=== PATIENT | male | born 1970 | race Caucasian/White ===

== ENCOUNTER 2018-05-24 14:03 | Inpatient (IN) | payer MEDICAID, OTHER ==
[~2018-05-24] VITALS: Ht 170.2 cm; Wt 84.8 kg
[2018-05-24] MEDS ORDERED: SODIUM CHLORIDE 0.9% 1,000 ML IV ONE ×2 (14:32→16:58)
[2018-05-24 15:01] LABS: BG BASE EXCESS 3.7 mmol/L (-2.0-2.0); BG CARBOXYHEMOGLOBIN 0.4 % (0.5-1.5); BG DEOXYHEMOGLOBIN 5.1 % (0.0-5.0); BG FRACTION INSPIRED OXYGEN 21; BG HCO3 ACT 28.2 mmol/L (22.0-26.0); BG METHEMOGLOBIN 0.3 % (0.0-1.5); BG OXYGEN SATURATION 94.9 % (92.0-98.5); BG OXYHEMOGLOBIN 94.2 % (94.0-97.0); BG PCO2 42.7 mmHg (35.0-45.0); BG PH 7.438 (7.350-7.450); BG PO2 77.4 mmHg (75.0-100.0); BG SAMPLE SITE RIGHT BRACHIAL; BG TOTAL HEMOGLOBIN 10.1 g/dL (12.0-18.0); BG VENT MODE ROOM AIR
[2018-05-24 15:30] LABS: INR 1.1; PROTHROMBIN TIME 11.1 sec (9.1-11.1)
[2018-05-24 15:31] LABS: BASOPHILS % 0.4 % (0.0-2.0); EOSINOPHILS % 0.6 % (0.0-5.0); HEMATOCRIT. 26.6 % (42.0-52.0); HEMOGLOBIN. 9.6 g/dL (14.0-18.0); LYMPHOCYTES % 10.4 % (20.0-50.0); MEAN CORPUSCULAR HEMOGLOBIN 31.8 pg (28.0-32.0); MEAN PLATELET VOLUME 9.1 fl (7.4-10.4); NEUTROPHILS % 81.6 % (40.0-76.0); PLATELET 112 x1000/uL (130-400); RED BLOOD CELL COUNT 3.02 mill/uL (4.7-6.1); RED CELL DISTRIBUTION WIDTH 15.4 % (11.6-14.6)
[2018-05-24 15:39] LABS: AMMONIA 32 uMol/L (<32)
[2018-05-24 15:40] LABS: CHLORIDE 98 mEq/L (98-107)
[2018-05-24 15:47] LABS: ETHANOL BLOOD < 10 mg/dL
[2018-05-24 15:56] LABS: BETA HYDROXYBUTYRATE 0.2 mMol/L (0.0-0.3)
[2018-05-24 15:58] LABS: CLARITY URINE CLEAR (CLEAR); COLOR URINE YELLOW (YELLOW); KETONES URINE NEGATIVE (NEGATIVE); LEUKOCYTE ESTERASE URINE NEGATIVE (NEGATIVE); NITRITE URINE NEGATIVE (NEGATIVE); OCCULT BLOOD URINE TRACE (NEGATIVE); PH URINE 6.5 (4.5-8.0); PROTEIN URINE 3+ (NEGATIVE); SPECIFIC GRAVITY URINE 1.023 (1.005-1.030); UROBILINOGEN URINE 0.2 E.U./dL (0.2-1.0)
[2018-05-24 16:17] LABS: *AMPHETAMINES SCREEN URINE NEGATIVE (NEGATIVE); *BENZODIAZEPINES SCREEN URINE NEGATIVE (NEGATIVE)
[2018-05-24 16:18] LABS: *COCAINE SCREEN URINE NEGATIVE (NEGATIVE); CANNABINOID URINE SCREEN NEGATIVE (NEGATIVE); METHADONE URINE SCREEN NEGATIVE (NEGATIVE); OPIATES URINE SCREEN NEGATIVE (NEGATIVE); PHENCYCLIDINE URINE SCREEN NEGATIVE (NEGATIVE)
[2018-05-24 16:21] LABS: *BARBITURATES SCREEN URINE NEGATIVE (NEGATIVE)
[2018-05-24] MEDS ORDERED: INSULIN REGULAR (HUMULIN R) 300UNITS/3ML SUBCUT NR (17:00)
[2018-05-24] MEDS ORDERED: CLONIDINE 0.1MG TABLET PO PRN (18:45)
[2018-05-24] MEDS ORDERED: HYDROCODONE/ACETAMINOPHEN 5/325MG TABLET PO PRN (18:45)
[2018-05-24] MEDS ORDERED: DOCUSATE SODIUM 100MG CAPSULE PO PRN (18:45)
[2018-05-24] MEDS ORDERED: ONDANSETRON HCL 4MG/2ML INJ IV PRN (18:45)
[2018-05-24] MEDS ORDERED: GUAIFENESIN 200MG/10ML SUGAR FREE UDC PO PRN (18:45)
[2018-05-24] MEDS ORDERED: ACETAMINOPHEN 325MG TABLET PO PRN (18:45)
[2018-05-24] MEDS: SODIUM CHLORIDE 0.9% 1,000 ML IV SCH (19:05)
[2018-05-24] MEDS ORDERED: DEXTROSE 50% WATER 50ML SYRINGE IV PRN (22:00)
[2018-05-25] MEDS ORDERED: INSULIN GLARGINE UD 100 UNITS/ML SYR SUBCUT SCH
[2018-05-25 00:20] VITALS: BP 116/81
[2018-05-25] MEDS: LORAZEPAM 2MG/ML CPJ IV PRN ×2 (00:34→08:38)
[2018-05-25 04:47] VITALS: BP 172/90
[2018-05-25] MEDS: SODIUM CHLORIDE 0.9% 1,000 ML IV SCH (05:31)
[2018-05-25 06:36] LABS: CHLORIDE 105 mEq/L (98-107)
[2018-05-25] MEDS: BLOOD SUGAR DIAGNOSTIC STRIP TEST SCH ×2 (06:47→12:20)
[2018-05-25 07:49] VITALS: BP 144/88
[2018-05-25] MEDS: INSULIN LISPRO 100 UNITS/ML SUBCUT SCH ×2 (08:28→12:50)
[2018-05-25 08:41] LABS: BASOPHILS % 0.5 % (0.0-2.0); EOSINOPHILS % 0.7 % (0.0-5.0); HEMATOCRIT. 23.6 % (42.0-52.0); HEMOGLOBIN. 8.4 g/dL (14.0-18.0); LYMPHOCYTES % 14.2 % (20.0-50.0); MEAN CORPUSCULAR HEMOGLOBIN 31.4 pg (28.0-32.0); MEAN CORPUSCULAR VOLUME 87.6 fL (80.0-94.0); MEAN PLATELET VOLUME 9.1 fl (7.4-10.4); MONOCYTES % 6.9 % (2.0-8.0); NEUTROPHILS % 77.7 % (40.0-76.0); PLATELET 93 x1000/uL (130-400); RED BLOOD CELL COUNT 2.69 mill/uL (4.7-6.1); RED CELL DISTRIBUTION WIDTH 15.7 % (11.6-14.6)
[2018-05-25] MEDS ORDERED: AMLODIPINE 10MG TABLET PO SCH (09:00)
[2018-05-25] MEDS ORDERED: ASPIRIN 81MG EC TABLET PO SCH (09:00)
[2018-05-25 11:34] VITALS: BP 137/92
[2018-05-25 16:00] VITALS: BP 137/98
[2018-05-25 17:04] VITALS: BP 132/98
== END 2018-05-25 18:20 | disposition short-term general hospital (02) | DRG 420 ==
LOC: ER 14:39 → 6WST 17:32 → EDBEDREQ 17:32 → EDBEDREQTM 17:32 → ENRESERV 21:10 → 6WST 22:15
PROVIDERS: ADMIT Hospitalist; ATTEND Hospitalist
DX: E11.65 Type 2 diabetes mellitus with hyperglycemia (principal); G92 Toxic encephalopathy; N17.9 Acute kidney failure, unspecified; D69.6 Thrombocytopenia, unspecified; E11.22 Type 2 diabetes mellitus with diabetic chronic kidney disease; C18.9 Malignant neoplasm of colon, unspecified; D64.9 Anemia, unspecified; Z78.1 Physical restraint status; F17.200 Nicotine dependence, unspecified, uncomplicated; I12.9 Hypertensive chronic kidney disease with stage 1 through stage 4 chronic kidney disease, or unspecified chronic kidney disease; N18.9 Chronic kidney disease, unspecified; Z85.038 Personal history of other malignant neoplasm of large intestine
CPT/HCPCS: 36415; 36600; 70450; 70551; 71045; 80053; 80305; 81003; 82010; 82140; 82375; 82805; 82962; 83036; 83605; 83690; 83880; 84484; 85025; 85610; 87040; 87086; 93005; 93970; 96372; 99285; G0482; J1815; J2060; J7030

== ENCOUNTER 2020-04-30 19:30 | Emergency (ER) | payer OTHER, MEDICAID ==
[~2020-04-30] VITALS: Ht 154.9 cm; Wt 114.6 kg
[2020-04-30] MEDS ORDERED: ONDANSETRON HCL 4MG/2ML INJ IV STA (21:04)
[2020-04-30] MEDS ORDERED: MORPHINE SULFATE 4 MG/ML CPJ (NOT FOR IM USE) IV STA (21:04)
[2020-04-30] MEDS ORDERED: SODIUM CHLORIDE 0.9% 1,000 ML IV ONE ×2 (21:04→22:45)
[2020-04-30 22:04] LABS: BASOPHILS % 0.7 % (0.0-2.0); EOSINOPHILS % 5.7 % (0.0-5.0); HEMATOCRIT. 23.4 % (42.0-52.0); HEMOGLOBIN. 8.1 g/dL (14.0-18.0); MEAN CORPUSCULAR HEMOGLOBIN 31.2 pg (28.0-32.0); MEAN CORPUSCULAR VOLUME 89.7 fL (80.0-94.0); MEAN PLATELET VOLUME 10.2 fl (7.4-10.4); MONOCYTES % 9.3 % (2.0-8.0); NEUTROPHILS % 73.3 % (40.0-76.0); PLATELET 93 x1000/uL (130-400); RED BLOOD CELL COUNT 2.61 mill/uL (4.7-6.1); RED CELL DISTRIBUTION WIDTH 15.4 % (11.6-14.6)
[2020-04-30 22:10] LABS: CHLORIDE 103 mEq/L (98-107)
[2020-04-30 22:11] LABS: INR 1.2; PROTHROMBIN TIME 12.2 sec (9.6-11.0)
[2020-04-30 22:27] LABS: CLARITY URINE CLEAR (CLEAR); COLOR URINE YELLOW (YELLOW); KETONES URINE NEGATIVE (NEGATIVE); LEUKOCYTE ESTERASE URINE NEGATIVE (NEGATIVE); NITRITE URINE NEGATIVE (NEGATIVE); OCCULT BLOOD URINE NEGATIVE (NEGATIVE); PH URINE 7.5 (4.5-8.0); PROTEIN URINE 2+ (NEGATIVE); SPECIFIC GRAVITY URINE 1.008 (1.005-1.030); UROBILINOGEN URINE 0.2 E.U./dL (0.2-1.0)
[2020-04-30] MEDS ORDERED: CALCIUM GLUCONATE 100MG/ML 10ML VIAL IV ONE (22:45)
[2020-05-01] MEDS ORDERED: CEFTRIAXONE 1 G PREMIX 50 ML IV ONE (00:45)
[2020-05-01] MEDS ORDERED: MORPHINE SULFATE 4 MG/ML CPJ (NOT FOR IM USE) IV ONE (01:30)
[2020-05-01] MEDS ORDERED: CEFEPIME HCL 2000MG/VIAL INJ IV ONE (02:00)
[2020-05-01] MEDS ORDERED: SODIUM POLYSTYRENE SULFONATE 15 G/60 ML BOT PO ONE (02:00)
[2020-05-01] MEDS ORDERED: CEFEPIME 2,000 MG in DEXT 5% WATER 100 ML IV NR (02:15)
[2020-05-01 03:12] VITALS: BP 145/95
== END 2020-05-01 04:17 | disposition short-term general hospital (02) ==
LOC: ER 19:30
DX: R10.12 Left upper quadrant pain (principal); E87.5 Hyperkalemia; E11.9 Type 2 diabetes mellitus without complications; I10 Essential (primary) hypertension; Z88.8 Allergy status to other drugs, medicaments and biological substances
CPT/HCPCS: 36415; 70450; 71045; 74176; 80053; 81003; 82962; 83605; 83690; 84484; 85025; 85610; 86850; 86900; 86901; 93005; 96361; 96365; 96366; 96368; 96375; 96376; 99285; J0610; J0692; J0696; J2270; J2405; J7030; J7060

== ENCOUNTER 2020-08-14 00:56 | Inpatient (IN) | payer OTHER, MEDICAID ==
[~2020-08-14] VITALS: Ht 167.6 cm; Wt 71.7 kg
[2020-08-14 02:15] LABS: CHLORIDE 105 mEq/L (98-107)
[2020-08-14 02:16] LABS: HEMATOCRIT. 21.1 % (42.0-52.0); HEMOGLOBIN. 7.1 g/dL (14.0-18.0); MEAN CORPUSCULAR HEMOGLOBIN 31.4 pg (28.0-32.0); MEAN CORPUSCULAR VOLUME 92.5 fL (80.0-94.0); MEAN PLATELET VOLUME 9.2 fl (7.4-10.4); PLATELET 79 x1000/uL (130-400); RED BLOOD CELL COUNT 2.28 mill/uL (4.7-6.1); RED CELL DISTRIBUTION WIDTH 14.9 % (11.6-14.6)
[2020-08-14 02:43] LABS: PLATELET ESTIMATE DECREASED
[2020-08-14] MEDS ORDERED: CEFTRIAXONE 1 G PREMIX 50 ML IV ONE (05:15)
[2020-08-14] MEDS ORDERED: AZITHROMYCIN 500 MG in DEXT 5% WATER 250 ML IV ONE (05:15)
[2020-08-14] MEDS ORDERED: INSULIN REGULAR (HUMULIN R) 300UNITS/3ML VIAL IV SCH (10:00)
[2020-08-14] MEDS ORDERED: DEXTROSE 50% WATER 50ML SYRINGE IV SCH (10:00)
[2020-08-14] MEDS ORDERED: CALCIUM CHLORIDE 1,000 MG in DEXT 5% WATER 90 ML IV SCH (10:00)
[2020-08-14] MEDS ORDERED: SODIUM POLYSTYRENE SULFONATE 15 G/60 ML BOT PO SCH (10:00)
[2020-08-14] MEDS ORDERED: SODIUM BICARBONATE 8.4% 1 MEQ/ML 50ML SYR IV SCH (10:00)
[2020-08-14 11:05] LABS: CREATINE KINASE 270 IU/L (39-308)
[2020-08-14] MEDS ORDERED: ACETAMINOPHEN 325MG TABLET PO PRN (11:45)
[2020-08-14] MEDS ORDERED: DEXAMETHASONE 4MG/ML 1ML VIAL IV SCH (12:00)
[2020-08-14 12:25] LABS: BG BASE EXCESS -7.8 mmol/L (-2.0-2.0); BG CARBOXYHEMOGLOBIN 0.3 % (0.5-1.5); BG DEOXYHEMOGLOBIN 6.3 % (0.0-5.0); BG FRACTION INSPIRED OXYGEN 21; BG HCO3 ACT 17.9 mmol/L (22.0-26.0); BG METHEMOGLOBIN 0.3 % (0.0-1.5); BG OXYGEN SATURATION 93.7 % (92.0-98.5); BG OXYHEMOGLOBIN 93.1 % (94.0-97.0); BG PCO2 37.4 mmHg (35.0-45.0); BG PH 7.298 (7.350-7.450); BG SAMPLE SITE RIGHT RADIAL; BG TOTAL HEMOGLOBIN 7.1 g/dL (12.0-18.0); BG VENT MODE ROOM AIR
[2020-08-14] MEDS: BLOOD SUGAR DIAGNOSTIC STRIP TEST SCH ×3 (14:25→21:32)
[2020-08-14] MEDS: INSULIN LISPRO 100 UNITS/ML SUBCUT SCH ×3 (14:27→21:00)
[2020-08-14 15:13] LABS: MEAN CORPUSCULAR HEMOGLOBIN 30.6 pg (28.0-32.0); MEAN CORPUSCULAR VOLUME 91.7 fL (80.0-94.0); MEAN PLATELET VOLUME 8.6 fl (7.4-10.4); PLATELET 72 x1000/uL (130-400); RED BLOOD CELL COUNT 2.21 mill/uL (4.7-6.1); RED CELL DISTRIBUTION WIDTH 14.5 % (11.6-14.6)
[2020-08-14 15:29] LABS: T4 FREE 0.89 ng/dL (0.76-1.46)
[2020-08-14 15:42] LABS: HEMATOCRIT. 20.3 % (42.0-52.0); HEMOGLOBIN. 6.8 g/dL (14.0-18.0)
[2020-08-14] MEDS ORDERED: DEXTROSE 50% WATER 50ML SYRINGE IV ONE (16:30)
[2020-08-14 17:02] LABS: PLATELET ESTIMATE DECREASED
[2020-08-14 17:03] LABS: VITAMIN B12 SERUM 917 pg/mL (211-911)
[2020-08-14] MEDS ORDERED: TRAZODONE HCL 50MG TABLET PO PRN (18:00)
[2020-08-14] MEDS ORDERED: DEXTROSE 50% WATER 50ML SYRINGE IV NR (18:45)
[2020-08-14] MEDS: DEXTROSE 50% WATER 50ML SYRINGE IV PRN ×2 (22:00→22:01)
[2020-08-15] VITALS (11 sets, daily range): BP systolic 119–169; BP diastolic 70–114
[2020-08-15] MEDS ORDERED: *PATIENT'S OWN MEDICATION STORAGE XX SCH (02:45)
[2020-08-15 07:00] LABS: CHLORIDE 105 mEq/L (98-107)
[2020-08-15 07:05] LABS: MEAN CORPUSCULAR HEMOGLOBIN 30.8 pg (28.0-32.0); MEAN CORPUSCULAR VOLUME 91.4 fL (80.0-94.0); MEAN PLATELET VOLUME 9.4 fl (7.4-10.4); PLATELET 82 x1000/uL (130-400); RED BLOOD CELL COUNT 2.23 mill/uL (4.7-6.1)
[2020-08-15] MEDS: BLOOD SUGAR DIAGNOSTIC STRIP TEST SCH ×4 (07:30→21:00)
[2020-08-15 07:45] LABS: HEMATOCRIT. 20.4 % (42.0-52.0); HEMOGLOBIN. 6.9 g/dL (14.0-18.0)
[2020-08-15] MEDS: INSULIN LISPRO 100 UNITS/ML SUBCUT SCH (08:00)
[2020-08-15] MEDS ORDERED: CEFTRIAXONE 1 G PREMIX 50 ML IV SCH ×2 (08:00→14:45)
[2020-08-15 08:08] LABS: ANTI-NUCLEAR ANTIBODIES DIRECT Negative (Negative)
[2020-08-15] MEDS ORDERED: AZITHROMYCIN 500 MG in DEXT 5% WATER 250 ML IV SCH ×2 (09:00→12:00)
[2020-08-15] MEDS ORDERED: FENTANYL PCA XX SCH (09:15)
[2020-08-15] MEDS ORDERED: CEFTRIAXONE 1,000 MG in DEXTROSE 5% WATER 50 ML IV SCH (11:00)
[2020-08-15] MEDS: HYDROMORPHONE HCL/PF 2MG/ML CPJ IV PRN ×4 (12:25→23:08)
[2020-08-15] MEDS ORDERED: NALOXONE HCL 0.4 MG/ML 1ML VIAL IV PRN (12:30)
[2020-08-15] MEDS ORDERED: SODIUM POLYSTYRENE SULFONATE 15 G/60 ML BOT PO NR (13:00)
[2020-08-15] MEDS ORDERED: PIPERACILLIN/TAZOBACTAM 3.375 G/VIAL IV SCH (14:00)
[2020-08-15 14:25] LABS: INR 1.4; PARTIAL THROMBOPLASTIN TIME 39.6 sec (23.4-31.0); PROTHROMBIN TIME 14.9 sec (9.6-11.0)
[2020-08-15] MEDS ORDERED: HEPARIN 1000 UNITS/ML 10ML ONE (14:34)
[2020-08-15] MEDS ORDERED: LIDOCAINE HCL 1% 20ML VIAL (Pyxis) INJ ONE (14:34)
[2020-08-15 14:44] LABS: PLATELET ESTIMATE DECREASED
[2020-08-15] MEDS ORDERED: OXYCODONE HCL 20MG TABLET SR 12HR PO SCH (15:00)
[2020-08-15] MEDS ORDERED: PIPERACILLIN/TAZOBACTAM 3.375 G in DEXT 5% WATER 100 ML IV SCH (16:00)
[2020-08-15] MEDS ORDERED: VANCOMYCIN 1,750 MG in DEXT 5% WATER 250 ML IV NR (17:00)
[2020-08-15] MEDS ORDERED: NITROGLYCERIN OINT 1GM/INCH UDPKT TD PRN (18:30)
[2020-08-15] MEDS: FENTANYL 75MCG/HR PATCH TOP SCH ×2 (18:40→18:48)
[2020-08-15] MEDS: AZITHROMYCIN 250 MG in DEXT 5% WATER 250 ML IV SCH (18:42)
[2020-08-15] MEDS: CEFTRIAXONE 1,000 MG in DEXTROSE 5% WATER 50 ML IV SCH (18:42)
[2020-08-16] VITALS (10 sets, daily range): BP systolic 125–159; BP diastolic 76–99
[2020-08-16] MEDS: HYDROMORPHONE HCL/PF 2MG/ML CPJ IV PRN ×8 (02:01→23:57)
[2020-08-16 06:47] LABS: HEMOGLOBIN. 7.2 g/dL (14.0-18.0); MEAN CORPUSCULAR HEMOGLOBIN 30.9 pg (28.0-32.0); MEAN CORPUSCULAR VOLUME 89.8 fL (80.0-94.0); MEAN PLATELET VOLUME 8.4 fl (7.4-10.4); PLATELET 76 x1000/uL (130-400); RED BLOOD CELL COUNT 2.32 mill/uL (4.7-6.1); RED CELL DISTRIBUTION WIDTH 15.7 % (11.6-14.6)
[2020-08-16 07:08] LABS: HEMATOCRIT. 20.9 % (42.0-52.0)
[2020-08-16 07:14] LABS: CHLORIDE 111 mEq/L (98-107)
[2020-08-16] MEDS: BLOOD SUGAR DIAGNOSTIC STRIP TEST SCH (07:32)
[2020-08-16] MEDS: ASPIRIN 81MG TABLET PO SCH (09:24)
[2020-08-16] MEDS: ONDANSETRON HCL 4MG/2ML INJ IV PRN (09:54)
[2020-08-16] MEDS ORDERED: MAGNESIUM 2 G PREMIX 50 ML IV NR (13:00)
[2020-08-16 15:11] LABS: PLATELET ESTIMATE DECREASED
[2020-08-16] MEDS: AZITHROMYCIN 250 MG in DEXT 5% WATER 250 ML IV SCH (16:05)
[2020-08-16] MEDS: CEFTRIAXONE 1,000 MG in DEXTROSE 5% WATER 50 ML IV SCH (16:05)
[2020-08-17] VITALS (8 sets, daily range): BP systolic 136–157; BP diastolic 86–101
[2020-08-17] MEDS: HYDROMORPHONE HCL/PF 2MG/ML CPJ IV PRN ×8 (03:12→22:46)
[2020-08-17 07:53] LABS: HEMATOCRIT. 24.9 % (42.0-52.0); HEMOGLOBIN. 8.6 g/dL (14.0-18.0); MEAN CORPUSCULAR HEMOGLOBIN 31.2 pg (28.0-32.0); MEAN CORPUSCULAR VOLUME 90.2 fL (80.0-94.0); MEAN PLATELET VOLUME 8.3 fl (7.4-10.4); PLATELET 73 x1000/uL (130-400); RED BLOOD CELL COUNT 2.76 mill/uL (4.7-6.1); RED CELL DISTRIBUTION WIDTH 15.2 % (11.6-14.6)
[2020-08-17 07:53] LABS: CHLORIDE 107 mEq/L (98-107)
[2020-08-17] MEDS: ASPIRIN 81MG TABLET PO SCH (08:42)
[2020-08-17] MEDS: HYDROCODONE/ACETAMINOPHEN 10/325MG TABLET PO PRN (15:21)
[2020-08-17 16:13] LABS: PLATELET ESTIMATE DECREASED
[2020-08-17] MEDS ORDERED: IPRATROPIUM/ALBUTEROL 0.5-3(2.5)MG/3ML NEB HHN PRN (16:30)
[2020-08-17] MEDS ORDERED: METHYLPREDNISOLONE SOD SUCC 125 MG/2 ML VIAL IV NR (16:30)
[2020-08-17] MEDS: AZITHROMYCIN 250 MG in DEXT 5% WATER 250 ML IV SCH (16:57)
[2020-08-17] MEDS: CEFTRIAXONE 1,000 MG in DEXTROSE 5% WATER 50 ML IV SCH (16:58)
[2020-08-17] MEDS: METHYLPREDNISOLONE SOD SUCC 40 MG/ML VIAL IV SCH (17:15)
[2020-08-17] MEDS ORDERED: VANCOMYCIN 1 G PREMIX 200 ML IV SCH (18:00)
[2020-08-17] MEDS: ONDANSETRON HCL 4MG/2ML INJ IV PRN (18:38)
[2020-08-17] MEDS ORDERED: EPOETIN ALFA 10000UNITS/ML VIAL SUBCUT SCH (21:00)
[2020-08-17] MEDS ORDERED: FENTANYL 25MCG/HR PATCH TOP SCH (23:00)
[2020-08-17] MEDS ORDERED: FENTANYL 50MCG/HR PATCH TOP SCH (23:00)
[2020-08-18] VITALS (10 sets, daily range): BP systolic 100–165; BP diastolic 41–103
[2020-08-18] MEDS: HYDROMORPHONE HCL/PF 2MG/ML CPJ IV PRN ×10 (00:58→22:33)
[2020-08-18] MEDS: METHYLPREDNISOLONE SOD SUCC 40 MG/ML VIAL IV SCH ×3 (02:29→18:04)
[2020-08-18 06:32] LABS: HEMATOCRIT. 26.1 % (42.0-52.0); HEMOGLOBIN. 9.1 g/dL (14.0-18.0); MEAN CORPUSCULAR VOLUME 89.3 fL (80.0-94.0); MEAN PLATELET VOLUME 8.1 fl (7.4-10.4); PLATELET 69 x1000/uL (130-400); RED BLOOD CELL COUNT 2.93 mill/uL (4.7-6.1); RED CELL DISTRIBUTION WIDTH 15.2 % (11.6-14.6)
[2020-08-18 07:05] LABS: CHLORIDE 105 mEq/L (98-107)
[2020-08-18] MEDS: ONDANSETRON HCL 4MG/2ML INJ IV PRN ×3 (08:46→23:50)
[2020-08-18] MEDS: ASPIRIN 81MG TABLET PO SCH (09:39)
[2020-08-18] MEDS ORDERED: LACTULOSE 20G/30ML UDC PO SCH (13:00)
[2020-08-18 14:03] LABS: PLATELET ESTIMATE DECREASED
[2020-08-18] MEDS ORDERED: CLONIDINE 0.1MG TABLET PO PRN (15:15)
[2020-08-18] MEDS: CEFTRIAXONE 1,000 MG in DEXTROSE 5% WATER 50 ML IV SCH (16:45)
[2020-08-18] MEDS ORDERED: FENTANYL 50MCG/HR PATCH TOP NR (17:00)
[2020-08-18] MEDS: AZITHROMYCIN 250 MG in DEXT 5% WATER 250 ML IV SCH (18:15)
[2020-08-19] MEDS: HYDROMORPHONE HCL/PF 2MG/ML CPJ IV PRN ×6 (01:14→19:45)
[2020-08-19] MEDS: METHYLPREDNISOLONE SOD SUCC 40 MG/ML VIAL IV SCH ×2 (01:22→08:51)
[2020-08-19 04:00] VITALS: BP 139/90
[2020-08-19 07:00] LABS: HEMATOCRIT. 28.5 % (42.0-52.0); HEMOGLOBIN. 9.9 g/dL (14.0-18.0); MEAN CORPUSCULAR HEMOGLOBIN 31.2 pg (28.0-32.0); MEAN CORPUSCULAR VOLUME 89.5 fL (80.0-94.0); MEAN PLATELET VOLUME 8.6 fl (7.4-10.4); PLATELET 82 x1000/uL (130-400); RED BLOOD CELL COUNT 3.19 mill/uL (4.7-6.1); RED CELL DISTRIBUTION WIDTH 15.2 % (11.6-14.6)
[2020-08-19 07:13] LABS: CHLORIDE 104 mEq/L (98-107)
[2020-08-19 08:00] VITALS: BP 151/99
[2020-08-19] MEDS: ASPIRIN 81MG TABLET PO SCH (08:51)
[2020-08-19] MEDS: ONDANSETRON HCL 4MG/2ML INJ IV PRN (08:51)
[2020-08-19 12:00] VITALS: BP 153/97
[2020-08-19] MEDS: AMLODIPINE 2.5MG TABLET PO SCH (12:57)
[2020-08-19] MEDS: HYDROMORPHONE HCL/PF 2MG/ML CPJ IV NR ×2 (15:28→17:09)
[2020-08-19] MEDS: CITALOPRAM HYDROBROMIDE 10MG TABLET PO SCH (15:28)
[2020-08-19 16:00] VITALS: BP 157/95
[2020-08-19 17:06] LABS: PLATELET ESTIMATE DECREASED
[2020-08-19] MEDS ORDERED: VANCOMYCIN 500 MG PREMIX 100 ML IV NR (18:00)
[2020-08-19 20:24] VITALS: BP 152/87
[2020-08-19] MEDS: FENTANYL 25MCG/HR PATCH TOP SCH ×2 (22:33→22:41)
[2020-08-19] MEDS: FENTANYL 50MCG/HR PATCH TOP SCH ×2 (22:33→22:43)
[2020-08-20] VITALS (8 sets, daily range): BP systolic 114–156; BP diastolic 75–101
[2020-08-20] MEDS ORDERED: VANCOMYCIN HCL 1 GM/VIAL PO SCH
[2020-08-20] MEDS ORDERED: VANCOMYCIN HCL 1000 MG/20 ML ORAL PO SCH
[2020-08-20] MEDS: LORAZEPAM 2MG/ML CPJ IV PRN ×2 (00:04→21:52)
[2020-08-20] MEDS: HYDROMORPHONE HCL/PF 2MG/ML CPJ IV PRN ×7 (01:34→22:36)
[2020-08-20] MEDS: VANCOMYCIN HCL 1000 MG/20 ML ORAL PO SCH ×4 (02:05→17:28)
[2020-08-20] MEDS: HYDROCODONE/ACETAMINOPHEN 10/325MG TABLET PO PRN (06:12)
[2020-08-20] MEDS: ASPIRIN 81MG TABLET PO SCH (08:14)
[2020-08-20] MEDS: AMLODIPINE 2.5MG TABLET PO SCH (08:14)
[2020-08-20] MEDS: CITALOPRAM HYDROBROMIDE 10MG TABLET PO SCH (10:42)
[2020-08-20 13:19] LABS: HEMATOCRIT. 28.5 % (42.0-52.0); HEMOGLOBIN. 9.7 g/dL (14.0-18.0); MEAN CORPUSCULAR HEMOGLOBIN 30.5 pg (28.0-32.0); MEAN CORPUSCULAR VOLUME 89.6 fL (80.0-94.0); MEAN PLATELET VOLUME 8.3 fl (7.4-10.4); PLATELET 89 x1000/uL (130-400); RED BLOOD CELL COUNT 3.18 mill/uL (4.7-6.1)
[2020-08-20] MEDS: ONDANSETRON HCL 4MG/2ML INJ IV PRN (13:36)
[2020-08-20 17:27] LABS: HEPATITIS B SURFACE AB < 3.1 mIU/mL
[2020-08-20 17:38] LABS: HEPATITIS B SURFACE ANTIGEN NEGATIVE
[2020-08-20 18:08] LABS: HEPATITIS A AB IGM NEGATIVE (NEGATIVE)
[2020-08-20 20:40] LABS: PLATELET ESTIMATE DECREASED
[2020-08-20] MEDS: EPOETIN ALFA-EPBX 10,000 UNIT/ML VIAL SUBCUT SCH (21:50)
[2020-08-21] VITALS (9 sets, daily range): BP systolic 127–169; BP diastolic 77–106
[2020-08-21] MEDS: VANCOMYCIN HCL 1000 MG/20 ML ORAL PO SCH ×4 (00:26→18:44)
[2020-08-21] MEDS: HYDROMORPHONE HCL/PF 2MG/ML CPJ IV PRN ×8 (00:27→22:28)
[2020-08-21] MEDS: AMLODIPINE 2.5MG TABLET PO SCH (09:50)
[2020-08-21] MEDS: ASPIRIN 81MG TABLET PO SCH (09:50)
[2020-08-21] MEDS: CITALOPRAM HYDROBROMIDE 10MG TABLET PO SCH (09:50)
[2020-08-21] MEDS ORDERED: VANCOMYCIN 500 MG PREMIX 100 ML IV NR (15:00)
[2020-08-21] MEDS: HYDROCODONE/ACETAMINOPHEN 10/325MG TABLET PO PRN (23:57)
[2020-08-22] VITALS (10 sets, daily range): BP systolic 123–175; BP diastolic 69–114
[2020-08-22] MEDS ORDERED: FENTANYL 75MCG/HR PATCH TOP SCH
[2020-08-22] MEDS: VANCOMYCIN HCL 1000 MG/20 ML ORAL PO SCH ×4 (00:46→18:53)
[2020-08-22] MEDS: HYDROMORPHONE HCL/PF 2MG/ML CPJ IV PRN ×6 (00:46→20:20)
[2020-08-22] MEDS: ASPIRIN 81MG TABLET PO SCH (07:16)
[2020-08-22 07:49] LABS: HEMOGLOBIN. 9.1 g/dL (14.0-18.0); MEAN CORPUSCULAR HEMOGLOBIN 30.6 pg (28.0-32.0); MEAN CORPUSCULAR VOLUME 90.9 fL (80.0-94.0); MEAN PLATELET VOLUME 8.8 fl (7.4-10.4); PLATELET 72 x1000/uL (130-400); RED BLOOD CELL COUNT 2.97 mill/uL (4.7-6.1); RED CELL DISTRIBUTION WIDTH 15.4 % (11.6-14.6)
[2020-08-22] MEDS: CITALOPRAM HYDROBROMIDE 10MG TABLET PO SCH (08:31)
[2020-08-22] MEDS: LORAZEPAM 2MG/ML CPJ IV PRN ×2 (08:31→16:06)
[2020-08-22] MEDS: AMLODIPINE 2.5MG TABLET PO SCH (09:00)
[2020-08-22 19:04] LABS: PLATELET ESTIMATE DECREASED
[2020-08-22] MEDS: EPOETIN ALFA-EPBX 10,000 UNIT/ML VIAL SUBCUT SCH (21:00)
[2020-08-22] MEDS ORDERED: HYDROMORPHONE HCL 4MG TABLET PO PRN (23:30)
[2020-08-23] VITALS (24 sets, daily range): BP systolic 109–183; BP diastolic 59–110
[2020-08-23] MEDS: VANCOMYCIN HCL 1000 MG/20 ML ORAL PO SCH ×4 (01:03→17:46)
[2020-08-23] MEDS: HYDROMORPHONE HCL 2MG TABLET PO PRN ×4 (01:28→17:46)
[2020-08-23] MEDS: CITALOPRAM HYDROBROMIDE 10MG TABLET PO SCH (07:44)
[2020-08-23] MEDS: ASPIRIN 81MG TABLET PO SCH (07:44)
[2020-08-23] MEDS: AMLODIPINE 2.5MG TABLET PO SCH (07:45)
[2020-08-23 09:57] LABS: MEAN CORPUSCULAR HEMOGLOBIN 30.5 pg (28.0-32.0); MEAN PLATELET VOLUME 8.7 fl (7.4-10.4); PLATELET 84 x1000/uL (130-400); RED BLOOD CELL COUNT 1.95 mill/uL (4.7-6.1); RED CELL DISTRIBUTION WIDTH 15.6 % (11.6-14.6)
[2020-08-23 10:11] LABS: HEMATOCRIT. 17.8 % (42.0-52.0)
[2020-08-23] MEDS ORDERED: VANCOMYCIN 750 MG PREMIX 150 ML IV NR (11:00)
[2020-08-23] MEDS: LORAZEPAM 2MG/ML CPJ IV PRN (13:06)
[2020-08-23] MEDS: OXYCODONE HCL 20MG TABLET SR 12HR PO SCH ×2 (15:45→21:08)
[2020-08-23 16:52] LABS: PLATELET ESTIMATE DECREASED
[2020-08-23] MEDS ORDERED: FENTANYL 25MCG/HR PATCH TOP SCH (22:20)
[2020-08-23] MEDS ORDERED: FENTANYL 50MCG/HR PATCH TOP SCH (22:20)
[2020-08-23] MEDS: HYDROMORPHONE HCL/PF 2MG/ML CPJ IV PRN (22:47)
[2020-08-23 23:57] LABS: HEMATOCRIT 25.5 % (42.0-52.0); HEMOGLOBIN 8.4 g/dL (14.0-18.0)
[2020-08-24] VITALS (12 sets, daily range): BP systolic 132–176; BP diastolic 19–104
[2020-08-24 00:07] LABS: INR 1.4; PROTHROMBIN TIME 14.3 sec (9.6-11.0)
[2020-08-24] MEDS: HYDROMORPHONE HCL/PF 2MG/ML CPJ IV PRN ×9 (00:43→23:38)
[2020-08-24] MEDS: VANCOMYCIN HCL 1000 MG/20 ML ORAL PO SCH ×4 (00:44→17:46)
[2020-08-24] MEDS: OXYCODONE HCL 20MG TABLET SR 12HR PO SCH ×3 (06:21→23:06)
[2020-08-24] MEDS: ASPIRIN 81MG TABLET PO SCH (08:18)
[2020-08-24] MEDS: CITALOPRAM HYDROBROMIDE 10MG TABLET PO SCH (08:18)
[2020-08-24] MEDS: AMLODIPINE 2.5MG TABLET PO SCH (08:18)
[2020-08-24] MEDS: LORAZEPAM 2MG/ML CPJ IV PRN ×2 (12:15→23:06)
[2020-08-24 18:12] LABS: HEMATOCRIT. 24.2 % (42.0-52.0); HEMOGLOBIN. 7.9 g/dL (14.0-18.0); MEAN CORPUSCULAR HEMOGLOBIN 30.2 pg (28.0-32.0); MEAN CORPUSCULAR VOLUME 92.2 fL (80.0-94.0); MEAN PLATELET VOLUME 8.4 fl (7.4-10.4); PLATELET 81 x1000/uL (130-400); RED BLOOD CELL COUNT 2.62 mill/uL (4.7-6.1); RED CELL DISTRIBUTION WIDTH 15.6 % (11.6-14.6)
[2020-08-24 19:00] LABS: PLATELET ESTIMATE DECREASED
[2020-08-24] MEDS ORDERED: VANCOMYCIN 500 MG PREMIX 100 ML IV SCH (21:00)
[2020-08-24] MEDS: EPOETIN ALFA-EPBX 10,000 UNIT/ML VIAL SUBCUT SCH (21:41)
[2020-08-25] VITALS (12 sets, daily range): BP systolic 128–160; BP diastolic 45–96
[2020-08-25] MEDS: VANCOMYCIN HCL 1000 MG/20 ML ORAL PO SCH (00:24)
[2020-08-25] MEDS: HYDROMORPHONE HCL/PF 2MG/ML CPJ IV PRN ×6 (02:28→22:40)
[2020-08-25] MEDS: OXYCODONE HCL 20MG TABLET SR 12HR PO SCH (06:58)
[2020-08-25] MEDS: LORAZEPAM 2MG/ML CPJ IV PRN (07:31)
[2020-08-25 08:00] LABS: HEMATOCRIT. 24.9 % (42.0-52.0); HEMOGLOBIN. 8.3 g/dL (14.0-18.0); MEAN CORPUSCULAR VOLUME 93.4 fL (80.0-94.0); MEAN PLATELET VOLUME 9.1 fl (7.4-10.4); PLATELET 77 x1000/uL (130-400); RED BLOOD CELL COUNT 2.67 mill/uL (4.7-6.1); RED CELL DISTRIBUTION WIDTH 16.4 % (11.6-14.6)
[2020-08-25] MEDS: AMLODIPINE 2.5MG TABLET PO SCH (08:56)
[2020-08-25] MEDS: ASPIRIN 81MG TABLET PO SCH (08:56)
[2020-08-25] MEDS: CITALOPRAM HYDROBROMIDE 10MG TABLET PO SCH (08:56)
[2020-08-25] MEDS ORDERED: CEFEPIME 1,000 MG in SODIUM CHLORIDE 0.9% 50 ML IV SCH (14:00)
[2020-08-25] MEDS: OXYCODONE HCL 10MG TABLET SR 12HR PO SCH ×2 (15:07→22:41)
[2020-08-25 16:26] LABS: INR 1.6; PROTHROMBIN TIME 16.1 sec (9.6-11.0)
[2020-08-25 22:48] LABS: PLATELET ESTIMATE DECREASED
[2020-08-26] VITALS (11 sets, daily range): BP systolic 133–150; BP diastolic 74–97
[2020-08-26] MEDS: HYDROMORPHONE HCL/PF 2MG/ML CPJ IV PRN ×4 (00:58→13:17)
[2020-08-26] MEDS: OXYCODONE HCL 10MG TABLET SR 12HR PO SCH (05:45)
[2020-08-26 09:15] LABS: HEMATOCRIT. 27.1 % (42.0-52.0); HEMOGLOBIN. 8.8 g/dL (14.0-18.0); MEAN CORPUSCULAR HEMOGLOBIN 30.5 pg (28.0-32.0); MEAN CORPUSCULAR VOLUME 94.4 fL (80.0-94.0); MEAN PLATELET VOLUME 8.6 fl (7.4-10.4); PLATELET 72 x1000/uL (130-400); RED BLOOD CELL COUNT 2.87 mill/uL (4.7-6.1); RED CELL DISTRIBUTION WIDTH 16.3 % (11.6-14.6)
[2020-08-26 09:17] LABS: INR 1.8; PARTIAL THROMBOPLASTIN TIME 46.5 sec (23.4-31.0); PROTHROMBIN TIME 18.1 sec (9.6-11.0)
[2020-08-26] MEDS: CITALOPRAM HYDROBROMIDE 10MG TABLET PO SCH (09:19)
[2020-08-26] MEDS: AMLODIPINE 2.5MG TABLET PO SCH (09:20)
[2020-08-26] MEDS ORDERED: LIDOCAINE HCL 1% 20ML VIAL (Pyxis) INJ ONE (12:48)
[2020-08-26] MEDS ORDERED: MORPHINE SULFATE 250 MG in DEXT 5% WATER 240 ML IV PRN (13:30)
[2020-08-26] MEDS ORDERED: LORAZEPAM 2MG/ML CPJ IV PRN (13:30)
[2020-08-26] MEDS ORDERED: MORPHINE SULFATE 2 MG/ML CPJ (NOT FOR IM USE) IV SCH (13:30)
[2020-08-26] MEDS ORDERED: PHYTONADIONE 10MG/ML AMP SUBCUT SCH (13:45)
[2020-08-26] MEDS ORDERED: MORPHINE SULFATE 250 MG in SODIUM CHLORIDE 0.9% 240 ML IV PRN (13:58)
[2020-08-26 14:45] LABS: PLATELET ESTIMATE DECREASED
[2020-08-27] VITALS: BP 145/88
[2020-08-27] MEDS ORDERED: VANCOMYCIN 1,250 MG in SODIUM CHLORIDE 0.9% 250 ML IV SCH ×2 (04:00→07:00)
== END 2020-08-27 00:20 | disposition expired | DRG 871 ==
LOC: ER 00:56 → 5EST 06:45 → ENRESERV 22:53 → 5EST 08-18 04:36 → 3WST 08-21 13:28 → 6EST 08-26 18:13
PROVIDERS: ADMIT Internal Medicine; ATTEND Internal Medicine
PROC: 02H633Z Insertion of Infusion Device into Right Atrium, Percutaneous Approach (ICD-10-PCS; 2020-08-15)
PROC: B548ZZA Ultrasonography of Superior Vena Cava, Guidance (ICD-10-PCS; 2020-08-15)
PROC: 5A1D70Z Performance of Urinary Filtration, Intermittent, Less than 6 Hours Per Day (ICD-10-PCS; 2020-08-15)
PROC: 30233N1 Transfusion of Nonautologous Red Blood Cells into Peripheral Vein, Percutaneous Approach (ICD-10-PCS; principal; 2020-08-16)
PROC: 5A1D70Z Performance of Urinary Filtration, Intermittent, Less than 6 Hours Per Day (ICD-10-PCS; 2020-08-17)
PROC: 02HV33Z Insertion of Infusion Device into Superior Vena Cava, Percutaneous Approach (ICD-10-PCS; 2020-08-18)
PROC: 5A1D70Z Performance of Urinary Filtration, Intermittent, Less than 6 Hours Per Day (ICD-10-PCS; 2020-08-20)
PROC: 5A1D70Z Performance of Urinary Filtration, Intermittent, Less than 6 Hours Per Day (ICD-10-PCS; 2020-08-22)
PROC: 5A1D70Z Performance of Urinary Filtration, Intermittent, Less than 6 Hours Per Day (ICD-10-PCS; 2020-08-23)
PROC: 06HY33Z Insertion of Infusion Device into Lower Vein, Percutaneous Approach (ICD-10-PCS; 2020-08-26)
PROC: B54BZZA Ultrasonography of Right Lower Extremity Veins, Guidance (ICD-10-PCS; 2020-08-26)
PROC: 5A1D70Z Performance of Urinary Filtration, Intermittent, Less than 6 Hours Per Day (ICD-10-PCS; 2020-08-26)
DX: A41.9 Sepsis, unspecified organism (principal); N18.6 End stage renal disease; G92 Toxic encephalopathy; J18.9 Pneumonia, unspecified organism; E87.2 Acidosis; I12.0 Hypertensive chronic kidney disease with stage 5 chronic kidney disease or end stage renal disease; E87.1 Hypo-osmolality and hyponatremia; C78.6 Secondary malignant neoplasm of retroperitoneum and peritoneum; C78.00 Secondary malignant neoplasm of unspecified lung; C78.7 Secondary malignant neoplasm of liver and intrahepatic bile duct; E44.0 Moderate protein-calorie malnutrition; K76.6 Portal hypertension; C64.1 Malignant neoplasm of right kidney, except renal pelvis; D68.9 Coagulation defect, unspecified; I31.3 Pericardial effusion (noninflammatory); R18.8 Other ascites; Q78.2 Osteopetrosis; Z66 Do not resuscitate; Z51.5 Encounter for palliative care; E11.22 Type 2 diabetes mellitus with diabetic chronic kidney disease; I95.9 Hypotension, unspecified; E87.5 Hyperkalemia; D64.9 Anemia, unspecified; D69.6 Thrombocytopenia, unspecified; E11.649 Type 2 diabetes mellitus with hypoglycemia without coma; E87.6 Hypokalemia; G89.29 Other chronic pain; E83.42 Hypomagnesemia; K74.60 Unspecified cirrhosis of liver; R26.2 Difficulty in walking, not elsewhere classified; F41.1 Generalized anxiety disorder; N43.3 Hydrocele, unspecified; E11.65 Type 2 diabetes mellitus with hyperglycemia; Z78.1 Physical restraint status; Z99.2 Dependence on renal dialysis; Z85.038 Personal history of other malignant neoplasm of large intestine; Z92.21 Personal history of antineoplastic chemotherapy; Z92.3 Personal history of irradiation; Z68.25 Body mass index [BMI] 25.0-25.9, adult; Z20.822 Contact with and (suspected) exposure to COVID-19
CPT/HCPCS: 36415; 36556; 36600; 71045; 71250; 74018; 74176; 76700; 76770; 76937; 80048; 80053; 80202; 82105; 82270; 82375; 82378; 82550; 82607; 82805; 82962; 83540; 83550; 83605; 83735; 83880; 84145; 84439; 84443; 84450; 84460; 84484; 85014; 85018; 85025; 85049; 85384; 86038; 86160; 86301; 86705; 86706; 86709; 86803; 86850; 86900; 86920; 87045; 87076; 87077; 87186; 87340; 87449; 87493; 93005; 93306; 97162; 97166; 97530; 99291; C1752; C9803; J0456; J0692; J0696; J0885; J1170; J1642; J1644; J1815; J2060; J2270; J2274; J2405; J2543; J2920; J2930; J3370; J3430; J3475; J3490; J7040; J7050; J7060; P9016; P9021; U0003